=== PATIENT | female | born 1985 | race Caucasian/White ===

== ENCOUNTER 2025-06-15 17:31 | Inpatient (IN) | payer BC, SELFPAY ==
[2025-06-15 17:46] VITALS: BP 110/64; BMI 25.0
[2025-06-15] MEDS: LR 1000 IV ×2 (18:26→20:17)
[2025-06-15 18:42] LABS: Hematocrit 30.1 % (37.0-47.0); Hemoglobin 10.3 g/dL (12.0-16.0); Mean Corp Hgb Conc. 34.2 g/dL (33.0-37.0); Mean Corpuscular Volume 90.7 fL (81.0-99.0); Nucleated Red Blood Cells % 0 %; Platelet Count 145 10^3/uL (130-400); Red Cell Dist. Width 13.3 % (11.5-14.5)
[2025-06-15] MEDS: SUBLIMAZE 100 MCG EPIDURAL (20:00)
[2025-06-15] MEDS: FENTANYL/BUPIVACAINE 100 EPIDURAL (20:00)
[2025-06-15] MEDS: PITOCIN 30 UNITS/NSS 500 ML IV (21:57)
[2025-06-16] MEDS: MOTRIN 600 MG PO (21:08)
[2025-06-17] MEDS: MOTRIN 600 MG PO ×2 (04:22→15:38)
[2025-06-17 06:17] LABS: Hematocrit 28.2 % (37.0-47.0); Hemoglobin 9.4 g/dL (12.0-16.0)
[2025-06-18 13:41] LABS: Syphilis/T. pallidum Ab Reflex Negative (Negative)
== END 2025-06-17 18:09 | disposition home or self-care (01) | DRG 807 ==
LOC: LDRP 17:31
PROVIDERS: ADMITTING PHYSICIAN Obstetrics & Gynecology
PROC: 10E0XZZ Delivery of Products of Conception, External Approach (ICD-10-PCS; 2025-06-16)
DX: O77.0 Labor and delivery complicated by meconium in amniotic fluid (principal); Z37.0 Single live birth; Z3A.37 37 weeks gestation of pregnancy
CPT/HCPCS: 36415; 85014; 85018; 85025; 86780; 86850; 86900; 86901; 88307